=== PATIENT | female | born 1960 | race Caucasian/White ===

== ENCOUNTER → 2020-02-14 | Outpatient (CLI) | payer OTHER ==
[2020-02-14 12:03] LABS: BASO # 0.1 (0.02-0.10); EOS # 0.1 (0.04-0.40); EOS % 1.6 % (1.0-5.0); HEMATOCRIT 41.2 % (37.0-47.0); HEMOGLOBIN 13.7 g/dL (12.5-16.0); LYMPH# 1.4 (1.50-4.00); MEAN CELL VOLUME 86 fl (78-100); MEAN CORPUSCULAR HEMOGLOBIN 29 pg (27-31); MEAN CORPUSCULAR HGB CONC 33 g/dL (33-37); MEAN PLATELET VOLUME 9.7 fl (7.4-10.4); MONO # 0.6 (0.20-0.80); NEU # 4.1 (1.40-6.50); PLATELET COUNT 274 K/mm3 (130-400); RED BLOOD COUNT 4.81 M/mm3 (4.10-5.30); RED CELL DISTRIBUTION WIDTH 12.7 % (11.5-14.5); WHITE BLOOD COUNT 6.2 K/mm3 (4.8-10.8)
[2020-02-14 12:15] LABS: ALBUMIN 4.3 g/dL (3.5-5.0)
[2020-02-14 12:17] LABS: TOTAL PROTEIN 7.1 g/dL (6.4-8.3)
[2020-02-14 12:25] LABS: MAGNESIUM 2.12 mg/dL (1.60-2.60)
[2020-02-14 13:09] LABS: ERYTHROCYTE SEDIMENTATION RATE 7 mm/hr (0-30)
== END ==
LOC: LAB 11:51
PROVIDERS: Internal Medicine
DX: Z00.00 Encounter for general adult medical examination without abnormal findings (principal); Z12.11 Encounter for screening for malignant neoplasm of colon; E74.39 Other disorders of intestinal carbohydrate absorption; D64.9 Anemia, unspecified; R73.02 Impaired glucose tolerance (oral); I10 Essential (primary) hypertension; K90.9 Intestinal malabsorption, unspecified; D53.8 Other specified nutritional anemias

== ENCOUNTER → 2020-02-21 | Outpatient (CLI) | payer OTHER | LOC: LAB 09:46 | DX: Z00.00 Encounter for general adult medical examination without abnormal findings (principal); Z12.11 Encounter for screening for malignant neoplasm of colon; E74.39 Other disorders of intestinal carbohydrate absorption ==

== ENCOUNTER → 2020-05-14 | Outpatient (CLI) | payer OTHER | LOC: LAB 08:34 | DX: K90.9 Intestinal malabsorption, unspecified (principal) ==

== ENCOUNTER → 2020-09-15 | Outpatient (CLI) | payer OTHER | LOC: LAB 10:52 | DX: Z20.822 Contact with and (suspected) exposure to COVID-19 (principal) ==

== ENCOUNTER → 2020-11-15 | Outpatient (CLI) | payer OTHER ==
[2020-11-15 14:09] LABS: BASO # 0.05 (0.02-0.10); EOS % 1.4 % (1.0-5.0); HEMATOCRIT 42.7 % (37.0-47.0); HEMOGLOBIN 14.5 g/dL (12.5-16.0); LYMPH# 1.46 (1.50-4.00); MEAN CELL VOLUME 84 fl (78-100); MEAN CORPUSCULAR HEMOGLOBIN 29 pg (27-31); MEAN CORPUSCULAR HGB CONC 34 g/dL (33-37); MEAN PLATELET VOLUME 9.8 fl (7.4-10.4); MONO # 0.49 (0.20-0.80); NEU # 4.78 (1.40-6.50); PLATELET COUNT 252 K/mm3 (130-400); RED BLOOD COUNT 5.08 M/mm3 (4.10-5.30); RED CELL DISTRIBUTION WIDTH 12.3 % (11.5-14.5); WHITE BLOOD COUNT 6.9 K/mm3 (4.8-10.8)
[2020-11-15 14:11] LABS: ALBUMIN 4.3 g/dL (3.4-4.8)
[2020-11-15 14:12] LABS: POTASSIUM 3.7 mmol/L (3.5-5.1)
[2020-11-15 14:13] LABS: CALCIUM 9.1 mg/dL (8.3-10.5)
[2020-11-15 14:14] LABS: TOTAL PROTEIN 7.4 g/dL (6.2-8.1)
[2020-11-15 14:16] LABS: TOTAL BILIRUBIN 0.7 mg/dL (0.2-1.2)
== END ==
LOC: AMSURD 13:44
PROVIDERS: Internal Medicine
DX: R06.00 Dyspnea, unspecified (principal)